=== PATIENT | female | born 1985 | race Hispanic/Latino ===

== ENCOUNTER 2022-01-11 12:01 | Outpatient (CLI) | payer OTHER | END 2022-01-11 12:02 | disposition home or self-care (01) | LOC: CSHLAB 12:01 | PROVIDERS: ATTEND Internal Medicine Gastroenterology | DX: Z20.822 Contact with and (suspected) exposure to COVID-19 (principal); R10.9 Unspecified abdominal pain | CPT/HCPCS: 87811 ==

== ENCOUNTER 2022-01-19 09:59 | Outpatient (CLI) | payer OTHER | END 2022-01-19 10:00 | disposition home or self-care (01) | LOC: CSHLAB 09:59 | PROVIDERS: ATTEND Internal Medicine Gastroenterology | DX: Z20.822 Contact with and (suspected) exposure to COVID-19 (principal); R10.9 Unspecified abdominal pain | CPT/HCPCS: 87811 ==

== ENCOUNTER 2022-01-21 07:35 | Day surgery (SDC) | payer OTHER ==
[2022-01-07 13:47] VITALS: BMI 24.5
[2022-01-21] MEDS ORDERED: HYDROmorphone 0.5 MG/0.5 ML SYRINGE ONE (08:20)
[2022-01-21] MEDS ORDERED: Midazolam HCl 2 mg/2 ml Vial ONE (09:13)
[2022-01-21] MEDS ORDERED: Lidocaine 2% MPF 10 ML AMP (For Epidural Use) ONE (09:13)
[2022-01-21] MEDS ORDERED: PROPOFOL 40 ML ONE (09:13)
[2022-01-21] MEDS ORDERED: PHENYLEPHRINE-NS 100 MCG/ML 10 ML SYRINGE ONE (10:24)
[2022-01-21] MEDS ORDERED: PROPOFOL 20 ML ONE (10:48)
== END 2022-01-21 11:55 | disposition home or self-care (01) ==
LOC: CSHSDC 07:35
PROVIDERS: ATTEND Internal Medicine Gastroenterology
PROC: 0DBN8ZZ Excision of Sigmoid Colon, Via Natural or Artificial Opening Endoscopic (ICD-10-PCS; principal; 2022-01-21)
DX: D12.5 Benign neoplasm of sigmoid colon (principal); K64.9 Unspecified hemorrhoids; Q43.8 Other specified congenital malformations of intestine
CPT/HCPCS: 88305; J1170; J2250; J2704